=== PATIENT | male | born 1975 | race Caucasian/White ===

== ENCOUNTER 2025-04-08 18:31 | Observation (INO) | payer OTHER ==
[~2025-04-08] VITALS: Ht 177.8 cm; Wt 88.5 kg
[~2025-04-08 18:31] MED LIST: ALBU90OI INH; CODGUAEL PO; Excedrin Extra1 EACH PO; LOPE2C PO; MELA3 PO; SULF500 PO
[2025-04-08 20:11] LABS: U Amphetamine Screen Not Detected; U Barbiturate Screen Not Detected; U Benzodiazapine Screen Not Detected; U Buprenorphine Screen Not Detected; U Cannabinoids Screen DETECTED; U Cocaine Screen Not Detected; U Methadone Screen Not Detected; U Methamphetamine Screen Not Detected; U Opiates Screen Not Detected; U Oxycodone Screen Not Detected; U Phencyclidine Screen Not Detected
[2025-04-08 20:13] LABS: BASOPHILS ABSOLUTE AUTO 0.02 K/mm3 (0.00-0.23); BASOPHILS PERCENT AUTO 0 % (0-2); EOSINOPHILS ABSOLUTE AUTO 0.11 K/mm3 (0.00-0.68); EOSINOPHILS PERCENT AUTO 2 % (0-6); Hematocrit 46.4 % (37.0-53.0); Hemoglobin 16.4 g/dL (13.5-17.5); IMMATURE GRAN ABSOLUTE AUTO 0.02 K/mm3 (0.00-0.10); IMMATURE GRAN PERCENT AUTO 0 % (0-1); LYMPHOCYTES ABSOLUTE AUTO 1.54 K/mm3 (0.84-5.20); LYMPHOCYTES PERCENT AUTO 26 % (21-46); MONOCYTES ABSOLUTE AUTO 0.70 K/mm3 (0.16-1.47); MONOCYTES PERCENT AUTO 12 % (4-13); Mean Corpuscular HGB Conc 35.3 g/dL (31.5-36.5); Mean Corpuscular Volume 86 fL (80-100); NEUTROPHILS ABSOLUTE AUTO 3.62 K/mm3 (1.96-9.15); NEUTROPHILS PERCENT AUTO 60 % (41-73); NRBC ABSOLUTE 0.00 K/mm3 (0.00-0.02); NRBC Auto 0.0 /100 WBC (0.0-0.2); Platelet Count 296 K/mm3 (150-400); RDW Coefficient Variation 12.5 % (11.7-14.2); RDW Standard Deviation 38.7 fL (35.1-46.3)
[2025-04-08 20:47] LABS: Source, Urine Clean Catch
[2025-04-08 20:47] LABS: Ethanol (Alcohol), Blood, Med <3 mg/dL; Magnesium, Blood 2.2 mg/dL (1.6-2.4); Salicylate <1.7 mg/dL (2.8-20.0)
[2025-04-08 20:49] LABS: Alanine Aminotransfer (ALT/SGP 33 U/L (12-78); Albumin, Blood 4.0 g/dL (3.4-5.0); Albumin/Globulin Ratio 1.0 (0.8-1.8); Anion Gap 6 mmol/L (3-11); Aspartate Aminotrans (AST/SGOT 24 U/L (12-37); Bilirubin, Total 0.3 mg/dL (0.1-1.0); Blood Urea Nitrogen 16 mg/dL (8-24); CO2, Blood 28 mmol/L (21-32); Calcium, Blood 9.1 mg/dL (8.5-10.1); Chloride, Blood 105 mmol/L (98-108); Creatinine, Blood 0.91 mg/dL (0.60-1.20); Globulin, Blood 4.0 g/dL (2.2-4.0); Glucose, Blood 125 mg/dL (70-99); Potassium, Blood 3.6 mmol/L (3.5-5.5); Sodium, Blood 135 mmol/L (136-145); Total Protein, Blood 8.0 g/dL (6.4-8.2)
[2025-04-08 20:50] LABS: Acetaminophen, Random <2.0 ug/mL (10.0-30.0)
[2025-04-08 20:54] LABS: Bilirubin, Urine Neg (Neg); Glucose Qualitative, Urine Neg (Neg); Ketones, Urine Neg (Neg); Leukocyte Esterase, Urine Neg (Neg); Protein, Urine 1+ (Neg); Specific Gravity, Urine 1.020 (1.003-1.022); Urobilinogen, Urine NORM (Normal)
[2025-04-08 21:07] LABS: Color, Urine Yellow (P-Yellow)
[2025-04-08 21:08] LABS: Red Blood Cells, Urine 0-2 /hpf (0-2); White Blood Cells, Urine 0-2 /hpf (0-5)
[2025-04-09 10:37] VITALS: BP 113/65
== END 2025-04-09 10:48 | disposition home or self-care (01) ==
LOC: ER 18:31 → EOR 18:32
PROVIDERS: ADMIT Student in an Organized Health Care Education/Training Program
DX: F43.21 Adjustment disorder with depressed mood (principal); R45.851 Suicidal ideations; Z88.0 Allergy status to penicillin; Z88.8 Allergy status to other drugs, medicaments and biological substances
CPT/HCPCS: 80053; 80320; 81001; 83735; 85025; 99285; A9270; G0378; G0480